=== PATIENT | female | born 1970 | race Caucasian/White ===

== ENCOUNTER 2019-01-15 22:31 | Emergency (ER) | payer BC, OTHER ==
[~2019-01-15] VITALS: Ht 162.6 cm; Wt 98.4 kg
[~2019-01-15 22:31] MED LIST: INSU10SU6 SUBQ; METF850T PO; PIOG15TA2 PO
[2019-01-15 23:05] VITALS: BP 129/81
--- NOTE | 2019-01-15 23:08 | NUR ---
PT AMBULATED TO LOBBY WITH VSS. ACCOMPANIED BY .
--- NOTE | 2019-01-15 23:30 | NUR ---
PT AMBULATED TO ER BED 02
--- NOTE | 2019-01-15 23:31 | NUR ---
PATIENT PRESENTS ER WITH C/O NEAR SYNCOPE 3 TIMES SINCE YESTERDAY. PT STATED SHE HAS SOME PRSSURE IN HER NECK. PT DENIES FEVER AND DIARRHEA. PT HAS HAD SOME N/V. PATIENT STATES PAIN OF 7/10 AT THIS TIME;PT IS A/O X4.PT HAS HX OF DM. VSS; PATIENT POSITIONED FOR COMFORT; HOB ELEVATED; BEDRAILS UP X2; BED DOWN. ER MD MADE AWARE OF PT STATUS.
[2019-01-15] MEDS ORDERED: NACL 0.9% 1,000 ML IV ONE (23:40)
--- NOTE | 2019-01-16 00:01 | NUR ---
PT TAKEN TO CT
[2019-01-16 00:36] LABS: BASOPHILS % (AUTO) 0.3 % (0.0-2.0); EOSINOPHILS % (AUTO) 0.5 % (0.0-4.0); HEMATOCRIT 40.3 % (36-48); HEMOGLOBIN 13.1 g/dL (12.0-16.0); LYMPHOCYTES # (AUTO) 1.7 K/uL (2.5-16.5); LYMPHOCYTES % (AUTO) 20.6 % (20.5-51.1); MEAN CORPUSCULAR HEMOGLOBIN 30 pg (27-31); MEAN CORPUSCULAR HGB CONC 33 g/dL (33-37); MEAN CORPUSCULAR VOLUME 91.8 fL (80-94); MONOCYTES # (AUTO) 0.4 K/uL (0.8-1.0); NEUTROPHILS % (AUTO) 73.6 % (42.2-75.2); PLATELET COUNT (AUTO) 265 K/uL (140-450); RED BLOOD CELL COUNT(AUTO) 4.39 MIL/uL (4.20-5.40); RED CELL DISTRIBUTION WIDTH 12.7 % (11.6-13.7); WHITE BLOOD COUNT (AUTO) 8.1 K/uL (4.8-10.8)
[2019-01-16 00:45] LABS: BARBITURATE, URINE NEG. ng/ml (NEG <=200); BENZODIAZEPINE, URINE NEG. ng/mL (NEG <=200); CANNABINOID, URINE NEG. ng/mL (NEG <=50); COCAINE, URINE NEG. ng/mL (NEG <=300); OPIATE, URINE NEG. ng/mL (NEG <=2000); PHENCYCLIDINE SCREEN,URINE NEG. ng/mL (NEG <=25)
[2019-01-16 01:07] LABS: ALBUMIN 3.4 g/dL (3.4-5.0); ANION GAP 10.3 (8-16); CARBON DIOXIDE 28.6 mmol/L (21-32); CREATININE 0.7 mg/dL (0.6-1.3); POTASSIUM 3.9 mmol/L (3.5-5.1); TOTAL BILIRUBIN 0.4 mg/dL (0.0-1.0)
--- NOTE | 2019-01-16 01:18 | NUR ---
PT SITTING UP IN BED, VSS. COMFORT MEASURES OFFERED PT TOLERATED WELL.
[2019-01-16 02:58] LABS: APPEARANCE,URINE CLEAR (CLEAR); BILIRUBIN,URINE NEGATIVE (NEGATIVE); BLOOD, URINE NEGATIVE (NEGATIVE); COLOR,URINE YELLOW (YELLOW); LEUKOCYTE ESTERASE ,URINE NEGATIVE (NEGATIVE); NITRITE, URINE NEGATIVE (NEGATIVE); PH,URINE 6.5 (5.0-9.0); UGLUCOSE 1+ (NEGATIVE)
--- NOTE | 2019-01-16 03:26 | NUR ---
Patient discharged with v/s stable. Written and verbal after care instructions given and explained. Patient verbalized understanding. Ambulatory with steady gait. All questions addressed prior to discharge. Advised to follow up with PMD.
[2019-01-16 03:27] VITALS: BP 129/81
== END 2019-01-16 03:26 | disposition home or self-care (01) ==
LOC: MED 22:31
DX: R42 Dizziness and giddiness (principal); R55 Syncope and collapse; E11.9 Type 2 diabetes mellitus without complications; Z88.5 Allergy status to narcotic agent; Z88.1 Allergy status to other antibiotic agents; Z91.040 Latex allergy status; Z79.4 Long term (current) use of insulin
CPT/HCPCS: 36415; 70450; 71045; 80053; 80305; 81003; 84484; 85025; 87086; 96360; 99283; J7030; Q0092; 93005

== ENCOUNTER 2019-05-30 15:24 | Emergency (ER) | payer BC ==
[~2019-05-30] VITALS: Ht 165.1 cm; Wt 97.1 kg
[2019-05-30 15:35] VITALS: BP 137/87
--- NOTE | 2019-05-30 15:42 | NUR ---
PT WALKED TO LOBBY TO WAIT FOR BED.
--- NOTE | 2019-05-30 16:48 | NUR ---
DIZZINESS STARTED AT 1410. N/V. VOMITTED ONE TIME WITH STOMACH CONTENT. BS 225 HX: DM TX: BETA-KETOBIOTIN,ACTIVE FIT CONTROL GARCINA,GINSULIN,ASPIRIN,VASOTEC,INSULIN
--- NOTE | 2019-05-30 16:48 | NUR ---
PT AMBULATED TO BED 06.
--- NOTE | 2019-05-30 17:13 | NUR ---
Dr. Morrison evaluating patient at bedside.
[2019-05-30] MEDS ORDERED: NACL 0.9% 1,000 ML IV SCH (17:27)
[2019-05-30] MEDS ORDERED: NACL 0.9% 1,000 ML IV ONE (17:27)
[2019-05-30] MEDS ORDERED: ONDANSETRON 4 MG/2 ML VIAL IVP ONE (17:30)
[2019-05-30] MEDS ORDERED: MECLIZINE 25 MG TAB PO ONE (17:30)
[2019-05-30 18:04] LABS: BASOPHILS % (AUTO) 0.2 % (0.0-2.0); EOSINOPHILS % (AUTO) 0.2 % (0.0-4.0); HEMATOCRIT 42.2 % (36-48); HEMOGLOBIN 13.9 g/dL (12.0-16.0); LYMPHOCYTES # (AUTO) 1.9 K/uL (2.5-16.5); LYMPHOCYTES % (AUTO) 16.5 % (20.5-51.1); MEAN CORPUSCULAR HEMOGLOBIN 30 pg (27-31); MEAN CORPUSCULAR HGB CONC 33 g/dL (33-37); MONOCYTES # (AUTO) 0.4 K/uL (0.8-1.0); MONOCYTES % (AUTO) 3.7 % (1.7-9.3); NEUTROPHILS # (AUTO) 8.9 K/uL (1.8-7.7); NEUTROPHILS % (AUTO) 79.4 % (42.2-75.2); PLATELET COUNT (AUTO) 271 K/uL (140-450); RED BLOOD CELL COUNT(AUTO) 4.59 MIL/uL (4.20-5.40); RED CELL DISTRIBUTION WIDTH 13.3 % (11.6-13.7); WHITE BLOOD COUNT (AUTO) 11.2 K/uL (4.8-10.8)
[2019-05-30 18:10] LABS: PROTHROMBIN TIME 9.1 secs (10.8-13.4)
[2019-05-30 18:12] LABS: APPEARANCE,URINE CLEAR (CLEAR); BILIRUBIN,URINE NEGATIVE (NEGATIVE); BLOOD, URINE NEGATIVE (NEGATIVE); COLOR,URINE YELLOW (YELLOW); LEUKOCYTE ESTERASE ,URINE NEGATIVE (NEGATIVE); NITRITE, URINE NEGATIVE (NEGATIVE); UGLUCOSE 2+ (NEGATIVE)
[2019-05-30 18:13] LABS: ANION GAP 10.4 (8-16); CARBON DIOXIDE 30.3 mmol/L (21-32); CHLORIDE 106 mmol/L (98-107); CREATININE 0.7 mg/dL (0.6-1.3); GFR ARICAN-AMERICAN 114 mL/min (>90); GLUCOSE 123 mg/dL (74-106); POTASSIUM 3.7 mmol/L (3.5-5.1); SODIUM SERUM 143 mmol/L (136-145); UREA NITROGEN, BLOOD 11 mg/dL (7-18)
--- NOTE | 2019-05-30 18:15 | NUR ---
inventory technician at bedside.
[2019-05-30 18:19] LABS: BARBITURATE, URINE NEG. ng/ml (NEG <=200); BENZODIAZEPINE, URINE NEG. ng/mL (NEG <=200); CANNABINOID, URINE NEG. ng/mL (NEG <=50); COCAINE, URINE NEG. ng/mL (NEG <=300); OPIATE, URINE NEG. ng/mL (NEG <=2000); PHENCYCLIDINE SCREEN,URINE NEG. ng/mL (NEG <=25)
[2019-05-30 18:24] LABS: ACETONE, SERUM NEGATIVE (NEGATIVE)
[2019-05-30 18:29] LABS: ALBUMIN 3.8 g/dL (3.4-5.0); ASPARTATE AMINOTRANSFERASE 18 U/L (15-37); MAGNESIUM 1.9 mg/dL (1.8-2.4); TOTAL BILIRUBIN 0.4 mg/dL (0.0-1.0)
--- NOTE | 2019-05-30 18:47 | NUR ---
PT LYING COMFORTABLY IN HER BED.
--- NOTE | 2019-05-30 18:49 | NUR ---
Note sara in EDM - 05/30/19 at 1849 by [facility]SS DIZZINESS STARTED AT 1410. N/V. VOMITTED ONE TIME WITH STOMACH CONTENT. BS 225 HX: DM TX: BETA-KETOBIOTIN,ACTIVE FIT CONTROL GARCINA,GINSULIN,ASPIRIN,VASOTEC,INSULIN
--- NOTE | 2019-05-30 19:23 | NUR ---
REPORT GIVEN TO MARSHA BELL. PT RADHA.
[2019-05-30 19:34] VITALS: BP 142/78
--- NOTE | 2019-05-30 19:34 | NUR ---
Patient discharged with v/s stable. Written and verbal after care instructions given and explained. Patient alert, oriented and verbalized understanding of instructions. Ambulatory with steady gait. All questions addressed prior to discharge. ID band removed. Patient advised to follow up with PMD. Rx of ANTIVERT given. Patient educated on indication of medication including possible reaction and side effects. Opportunity to ask questions provided and answered.
== END 2019-05-30 19:34 | disposition home or self-care (01) ==
LOC: MED 15:24
DX: R55 Syncope and collapse (principal); R42 Dizziness and giddiness; E11.9 Type 2 diabetes mellitus without complications; Z79.4 Long term (current) use of insulin; Z79.899 Other long term (current) drug therapy; Z88.5 Allergy status to narcotic agent; Z88.1 Allergy status to other antibiotic agents; Z91.040 Latex allergy status
CPT/HCPCS: 36415; 70450; 71045; 80053; 80305; 81003; 81025; 82009; 82550; 82948; 83036; 83605; 83735; 84484; 85025; 85610; 93005; 96361; 96374; 99284; G0482; J2405; J7030; J8597; Q0092

== ENCOUNTER 2019-08-25 03:08 | Emergency (ER) | payer BC ==
[~2019-08-25] VITALS: Ht 165.1 cm; Wt 97.5 kg
[2019-08-25 03:23] VITALS: BP 138/80
--- NOTE | 2019-08-25 03:33 | NUR ---
PT TAKEN TO BED 8
--- NOTE | 2019-08-25 03:40 | NUR ---
PATIENT PRESENTS TO ED WITH FLANK PAIN, PAINFUL URINATION X1 DAY. HX OF KIDNEY STONES. . PT STATES SHE HAS EXCESS STRESS AT HOME. DENIES N/V/D; SKIN IS PINK/WARM/DRY; AAOX4 ; PATIENT STATES PAIN OF 10/10 AT THIS TIME; VSS; PATIENT POSITIONED FOR COMFORT; HOB ELEVATED; BEDRAILS UP X2; BED DOWN. ER MD MADE AWARE OF PT STATUS. MEDHX: DM
--- NOTE | 2019-08-25 03:55 | NUR ---
Dr. Hassan examining patient.
[2019-08-25] MEDS ORDERED: ONDANSETRON 4 MG/2 ML VIAL IVP ONE (04:00)
[2019-08-25] MEDS ORDERED: KETOROLAC 30 MG/ML VIAL IVP ONE (04:00)
[2019-08-25] MEDS ORDERED: NACL 0.9% 1,000 ML IV ONE (04:00)
[2019-08-25 04:27] LABS: BASOPHILS % (AUTO) 0.6 % (0.0-2.0); EOSINOPHILS # (AUTO) 0.1 K/uL (0-0.4); EOSINOPHILS % (AUTO) 0.9 % (0.0-4.0); HEMOGLOBIN 13.2 g/dL (12.0-16.0); LYMPHOCYTES # (AUTO) 2.1 K/uL (2.5-16.5); LYMPHOCYTES % (AUTO) 30.2 % (20.5-51.1); MEAN CORPUSCULAR HEMOGLOBIN 31 pg (27-31); MEAN CORPUSCULAR HGB CONC 33 g/dL (33-37); MEAN CORPUSCULAR VOLUME 93.8 fL (80-94); MONOCYTES # (AUTO) 0.4 K/uL (0.8-1.0); MONOCYTES % (AUTO) 5.5 % (1.7-9.3); NEUTROPHILS # (AUTO) 4.4 K/uL (1.8-7.7); NEUTROPHILS % (AUTO) 62.8 % (42.2-75.2); PLATELET COUNT (AUTO) 261 K/uL (140-450); RED BLOOD CELL COUNT(AUTO) 4.27 MIL/uL (4.20-5.40); RED CELL DISTRIBUTION WIDTH 12.7 % (11.6-13.7); WHITE BLOOD COUNT (AUTO) 7.1 K/uL (4.8-10.8)
--- NOTE | 2019-08-25 04:30 | NUR ---
PT RETURN FROM CT
[2019-08-25 04:42] LABS: ANION GAP 8.6 (8-16); CARBON DIOXIDE 29.2 mmol/L (21-32); CREATININE 0.8 mg/dL (0.6-1.3); POTASSIUM 3.8 mmol/L (3.5-5.1)
[2019-08-25 04:48] LABS: ALBUMIN 3.4 g/dL (3.4-5.0); TOTAL BILIRUBIN 0.3 mg/dL (0.0-1.0)
--- NOTE | 2019-08-25 07:07 | NUR ---
Patient discharged with v/s stable. Written and verbal after care instructions given and explained. Patient alert, oriented and verbalized understanding of instructions. Ambulatory with to home. All questions addressed prior to discharge. ID band removed. Patient advised to follow up with PMD. Rx of KEFLEX, NAPROSYN given. Patient educated on indication of medication including possible reaction and side effects. Opportunity to ask questions provided and answered.
[2019-08-25 07:08] VITALS: BP 138/80
== END 2019-08-25 07:07 | disposition home or self-care (01) ==
LOC: MED 03:08
DX: N39.0 Urinary tract infection, site not specified (principal); E11.9 Type 2 diabetes mellitus without complications; Z79.4 Long term (current) use of insulin; Z79.84 Long term (current) use of oral hypoglycemic drugs; Z88.5 Allergy status to narcotic agent; Z88.1 Allergy status to other antibiotic agents; Z91.040 Latex allergy status; Z90.10 Acquired absence of unspecified breast and nipple
CPT/HCPCS: 36415; 74176; 80053; 81002; 81025; 83690; 85025; 96374; 96375; 99284; J1885; J2405; J7030

== ENCOUNTER 2021-05-04 11:59 | Emergency (ER) | payer BC ==
[~2021-05-04] VITALS: Ht 162.6 cm; Wt 79.4 kg
[~2021-05-04 11:59] MED LIST changes: -PIOG15TA2 PO; +PIOG15TA48 PO
[2021-05-04 12:18] VITALS: BP 144/73
--- NOTE | 2021-05-04 14:02 | NUR ---
PT C/O ABD PAIN AND NAUSEA, DENIES ANY VOMITTING, DENIES ANY PROBLEMS WITH URINATION. PT STATED PAIN AND NAUSEA STARTED LAST NIGHT @ 3AM. PAIN CURRENTLY @ 02/27, LAST NIGHT 08/29, RADIATING TO THE BACK. PMH: DM, HTN. RX: METFORMIN, BP MEDICATION, INSULIN
[2021-05-04] MEDS ORDERED: ACETAMINOPHEN 325 MG TAB PO ONE (14:30)
[2021-05-04] MEDS ORDERED: FAMOTIDINE 20 MG TAB PO ONE (14:30)
[2021-05-04 15:04] LABS: BASOPHILS # (AUTO) 0.1 K/uL (0.00-0.22); BASOPHILS % (AUTO) 0.9 % (0.0-2.0); EOSINOPHILS # (AUTO) 0.1 K/uL (0-0.4); EOSINOPHILS % (AUTO) 0.9 % (0.0-4.0); HEMATOCRIT 40.6 % (36-48); HEMOGLOBIN 13.5 g/dL (12.0-16.0); LYMPHOCYTES # (AUTO) 2.6 K/uL (2.5-16.5); LYMPHOCYTES % (AUTO) 33.7 % (20.5-51.1); MEAN CORPUSCULAR HEMOGLOBIN 31 pg (27-31); MEAN CORPUSCULAR HGB CONC 33 g/dL (33-37); MEAN CORPUSCULAR VOLUME 92.8 fL (80-94); MONOCYTES # (AUTO) 0.4 K/uL (0.8-1.0); MONOCYTES % (AUTO) 4.8 % (1.7-9.3); NEUTROPHILS # (AUTO) 4.6 K/uL (1.8-7.7); NEUTROPHILS % (AUTO) 59.7 % (42.2-75.2); PLATELET COUNT (AUTO) 235 K/uL (140-450); RED BLOOD CELL COUNT(AUTO) 4.37 MIL/uL (4.20-5.40); RED CELL DISTRIBUTION WIDTH 12.6 % (11.6-13.7); WHITE BLOOD COUNT (AUTO) 7.8 K/uL (4.8-10.8)
[2021-05-04 15:27] LABS: ALBUMIN 3.4 g/dL (3.4-5.0); ANION GAP 10.7 (8-16); CARBON DIOXIDE 26.3 mmol/L (21-32); CREATININE 0.7 mg/dL (0.6-1.3); TOTAL BILIRUBIN 0.3 mg/dL (0.0-1.0)
[2021-05-04] MEDS ORDERED: FAMO-92 PO (15:52)
[2021-05-04 16:01] VITALS: BP 136/76
== END 2021-05-04 16:01 | disposition home or self-care (01) ==
LOC: MED 11:59
DX: K29.70 Gastritis, unspecified, without bleeding (principal); E11.65 Type 2 diabetes mellitus with hyperglycemia; I10 Essential (primary) hypertension; Z88.5 Allergy status to narcotic agent; Z91.040 Latex allergy status; Z88.1 Allergy status to other antibiotic agents
CPT/HCPCS: 36415; 80053; 81002; 82948; 83690; 85025; 99283

== ENCOUNTER 2021-06-10 11:30 | Emergency (ER) | payer BC ==
[~2021-06-10] VITALS: Ht 170.2 cm; Wt 67.6 kg
[~2021-06-10 11:30] MED LIST changes: +FAMO-92 PO
[2021-06-10 11:35] VITALS: BP 147/72
--- NOTE | 2021-06-10 11:41 | NUR ---
PT AMBULATED TO BED 9
--- NOTE | 2021-06-10 12:05 | NUR ---
51 Y/O FEMALE C/O RED CIRCULAR RASH X1 WEEK NOTED ON LOWER BACK AND CHEST AREA. +CRUSTED, -DISCHARGE. PT STATES THEY ARE VERY ITCHY BUT DENIES PAIN. PT STATED SHE HAD A HOT STONE MASSAGE X1 WEEK AGO AND DEVELOPED RASH AFTERWARDS. PT STATED THAT THE RASH IS SPREADING. DENIES N/V/D, AFEBRILE. PT A/O X4 WITH EVEN AND UNLABORED RESPIRATIONS. PMH: DM ALLERGIES:CODINE, LATEX, VANCO, MORPHINE
--- NOTE | 2021-06-10 13:06 | NUR ---
PA JACQUES AT BEDSIDE EVALUATING PT
[2021-06-10] MEDS ORDERED: KEN.1C TP (13:15)
[2021-06-10] MEDS ORDERED: DIPH25TA53 PO (13:15)
[2021-06-10 13:23] VITALS: BP 147/72
--- NOTE | 2021-06-10 13:23 | NUR ---
Patient discharged with v/s stable. Written and verbal after care instructions given and explained. Patient alert, oriented and verbalized understanding of instructions. Ambulatory with steady gait. All questions addressed prior to discharge. ID band removed. Patient advised to follow up with PMD. Rx of Diphenhydramine and Triamcinolone Acetonide cream given. Patient educated on indication of medication including possible reaction and side effects. Opportunity to ask questions provided and answered.
== END 2021-06-10 13:23 | disposition home or self-care (01) ==
LOC: MED 11:30
DX: R21 Rash and other nonspecific skin eruption (principal); E11.9 Type 2 diabetes mellitus without complications; Z88.5 Allergy status to narcotic agent; Z88.1 Allergy status to other antibiotic agents; Z91.040 Latex allergy status
CPT/HCPCS: 99283

== ENCOUNTER 2021-06-12 01:26 | Emergency (ER) | payer BC ==
[~2021-06-12] VITALS: Ht 162.6 cm; Wt 76.7 kg
[~2021-06-12 01:26] MED LIST changes: +DIPH25TA53 PO; +KEN.1C TP
[2021-06-12 01:30] VITALS: BP 150/80
[2021-06-12] MEDS ORDERED: methylPREDNISolone SS 125 MG/2 ML VIAL IM ONE (02:05)
[2021-06-12] MEDS ORDERED: FAMOTIDINE 20 MG TAB PO ONE (02:05)
[2021-06-12] MEDS ORDERED: PRED20TA6 PO (02:15)
[2021-06-12] MEDS ORDERED: FAMO-90 PO (02:15)
[2021-06-12 02:26] VITALS: BP 150/80
== END 2021-06-12 02:27 | disposition home or self-care (01) ==
LOC: MED 01:26
DX: R21 Rash and other nonspecific skin eruption (principal); E11.9 Type 2 diabetes mellitus without complications; Z88.5 Allergy status to narcotic agent; Z91.040 Latex allergy status; Z88.1 Allergy status to other antibiotic agents
CPT/HCPCS: 96372; 99283; J2930

== ENCOUNTER 2023-05-03 21:42 | Emergency (ER) | payer BC ==
[~2023-05-03] VITALS: Ht 165.1 cm; Wt 79.8 kg
[~2023-05-03 21:42] MED LIST changes: +FAMO-90 PO; +METF-713 PO; -METF850T PO; +PIOG-4 PO; -PIOG15TA48 PO; +PRED20TA6 PO
[2023-05-03 21:44] VITALS: BP 127/84
--- NOTE | 2023-05-03 21:47 | NUR ---
TO LOBBY A/W BED AMBULATORY
--- NOTE | 2023-05-03 22:17 | NUR ---
PT TO BED #2
[2023-05-03 22:25] VITALS: BP 127/84
[2023-05-03] MEDS ORDERED: BENZ150C2 PO (22:43)
[2023-05-03] MEDS ORDERED: DEXT15EL PO (22:43)
--- NOTE | 2023-05-03 22:52 | NUR ---
52 Y/O F from home presents with a dry cough x1week. pt denies any NVD or headaches. pt is ambulatory, A&Ox4, skin intact, respirations even and unlabored. pt stated she is in menopause, denies any ABD pain. pmh- DM allergies- codeine, latex
--- NOTE | 2023-05-03 22:58 | NUR ---
Patient discharged with v/s stable. Written and verbal after care instructions given and explained. Patient alert, oriented and verbalized understanding of instructions. Ambulatory with steady gait. All questions addressed prior to discharge. ID band removed. Patient advised to follow up with PMD. Rx of benzonatate and tussin cough given. Opportunity to ask questions provided and answered.
== END 2023-05-03 22:58 | disposition home or self-care (01) ==
LOC: MED 21:42
DX: J20.8 Acute bronchitis due to other specified organisms (principal); B97.89 Other viral agents as the cause of diseases classified elsewhere; E11.9 Type 2 diabetes mellitus without complications; I10 Essential (primary) hypertension; Z79.899 Other long term (current) drug therapy; Z79.84 Long term (current) use of oral hypoglycemic drugs; Z88.8 Allergy status to other drugs, medicaments and biological substances; Z88.5 Allergy status to narcotic agent; Z91.040 Latex allergy status
CPT/HCPCS: 71045; 99283

== ENCOUNTER 2023-06-23 11:06 | Emergency (ER) | payer BC ==
[~2023-06-23] VITALS: Ht 162.6 cm; Wt 68.0 kg
[~2023-06-23 11:06] MED LIST changes: +BENZ150C2 PO; +DEXT15EL PO
[2023-06-23 11:09] VITALS: BP 156/89; PULSE 76; RESP 16; TEMP 98; O2SAT 98
[2023-06-23 11:52] LABS: BASOPHILS % (AUTO) 0.4 % (0.0-2.0); EOSINOPHILS # (AUTO) 0.1 K/uL (0-0.4); EOSINOPHILS % (AUTO) 1.4 % (0.0-4.0); HEMOGLOBIN 13.4 g/dL (12.0-16.0); LYMPHOCYTES # (AUTO) 1.6 K/uL (2.5-16.5); MEAN CORPUSCULAR HEMOGLOBIN 31 pg (27-31); MEAN CORPUSCULAR HGB CONC 34 g/dL (33-37); MEAN CORPUSCULAR VOLUME 91.2 fL (80-94); MONOCYTES # (AUTO) 0.4 K/uL (0.8-1.0); MONOCYTES % (AUTO) 5.6 % (1.7-9.3); NEUTROPHILS # (AUTO) 4.4 K/uL (1.8-7.7); NEUTROPHILS % (AUTO) 67.6 % (42.2-75.2); PLATELET COUNT (AUTO) 269 K/uL (140-450); RED BLOOD CELL COUNT(AUTO) 4.38 MIL/uL (4.20-5.40); RED CELL DISTRIBUTION WIDTH 13.6 % (11.6-13.7); WHITE BLOOD COUNT (AUTO) 6.6 K/uL (4.8-10.8)
[2023-06-23 12:07] LABS: ALANINE AMINOTRANSFERASE 24 U/L (12-78); ALBUMIN 3.3 g/dL (3.4-5.0); ALKALINE PHOSPHATASE 92 U/L (50-136); ANION GAP 11.8 (8-16); ASPARTATE AMINOTRANSFERASE 16 U/L (15-37); CALCIUM 8.5 mg/dL (8.5-10.1); CARBON DIOXIDE 28.9 mmol/L (21-32); CHLORIDE 102 mmol/L (98-107); CREATININE 0.7 mg/dL (0.6-1.3); GFR ARICAN-AMERICAN 112 mL/min (>90); GFR NON ARICAN-AMERICAN 93 mL/min (>90); GLUCOSE 220 mg/dL (74-106); POTASSIUM 3.7 mmol/L (3.5-5.1); SODIUM SERUM 139 mmol/L (136-145); TOTAL BILIRUBIN 0.7 mg/dL (0.0-1.0); TOTAL PROTEIN, SERUM 6.8 g/dL (6.4-8.2); UREA NITROGEN, BLOOD 10 mg/dL (7-18)
[2023-06-23 12:52] LABS: APPEARANCE,URINE CLEAR (CLEAR); BILIRUBIN,URINE NEGATIVE (NEGATIVE); BLOOD, URINE NEGATIVE (NEGATIVE); COLOR,URINE YELLOW (YELLOW); LEUKOCYTE ESTERASE ,URINE NEGATIVE (NEGATIVE); NITRITE, URINE NEGATIVE (NEGATIVE); PH,URINE 6.5 (5.0-9.0); PROTEIN,URINE NEGATIVE (NEGATIVE); UGLUCOSE NEGATIVE (NEGATIVE); UROBILINOGEN,URINE 0.2 EU/dL (0.2 - 1)
[2023-06-23 13:00] VITALS: BP 143/72; PULSE 63; RESP 20; TEMP 98; O2SAT 100
[2023-06-23] MEDS ORDERED: BACITRACIN OINT 500 UNITS/GM PKT TP ONE (19:22)
== END 2023-06-23 13:04 | disposition home or self-care (01) ==
LOC: MED 11:06
DX: F41.9 Anxiety disorder, unspecified (principal); F43.9 Reaction to severe stress, unspecified; R42 Dizziness and giddiness; E11.9 Type 2 diabetes mellitus without complications; I10 Essential (primary) hypertension; Z88.1 Allergy status to other antibiotic agents; Z88.5 Allergy status to narcotic agent; Z88.8 Allergy status to other drugs, medicaments and biological substances; Z79.4 Long term (current) use of insulin; Z91.040 Latex allergy status; Z79.899 Other long term (current) drug therapy
CPT/HCPCS: 36415; 80053; 81003; 84484; 85025; 93005; 99284

== ENCOUNTER 2023-09-10 18:03 | Emergency (ER) | payer BC ==
[~2023-09-10] VITALS: Ht 165.1 cm; Wt 79.4 kg
[2023-09-10 18:24] VITALS: BP 149/64; PULSE 69; RESP 18; TEMP 98.2; O2SAT 97
[2023-09-10 18:55] LABS: APPEARANCE,URINE CLEAR (CLEAR); BILIRUBIN,URINE NEGATIVE (NEGATIVE); BLOOD, URINE NEGATIVE (NEGATIVE); COLOR,URINE YELLOW (YELLOW); LEUKOCYTE ESTERASE ,URINE NEGATIVE (NEGATIVE); NITRITE, URINE NEGATIVE (NEGATIVE); PH,URINE 6.5 (5.0-9.0); PROTEIN,URINE NEGATIVE (NEGATIVE); UGLUCOSE 3+ (NEGATIVE)
[2023-09-10] MEDS ORDERED: FLUC150T PO (19:15)
[2023-09-10 19:25] VITALS: BP 149/64; PULSE 69; RESP 18; TEMP 98.2; O2SAT 97
== END 2023-09-10 19:26 | disposition home or self-care (01) ==
LOC: MED 18:03
DX: L29.2 Pruritus vulvae (principal); E11.9 Type 2 diabetes mellitus without complications; Z90.710 Acquired absence of both cervix and uterus; I10 Essential (primary) hypertension; Z98.890 Other specified postprocedural states; Z79.899 Other long term (current) drug therapy; Z79.4 Long term (current) use of insulin; Z88.5 Allergy status to narcotic agent; Z91.040 Latex allergy status; Z88.1 Allergy status to other antibiotic agents
CPT/HCPCS: 81003; 99283

== ENCOUNTER 2023-09-20 21:23 | Emergency (ER) | payer BC ==
[~2023-09-20] VITALS: Ht 162.6 cm; Wt 72.6 kg
[~2023-09-20 21:23] MED LIST changes: +FLUC150T PO
[2023-09-20 21:46] VITALS: BP 141/94; PULSE 94; RESP 16; TEMP 96.8; O2SAT 97
[2023-09-20 22:09] LABS: BILIRUBIN,URINE NEGATIVE (NEGATIVE); BLOOD, URINE 1+ (NEGATIVE); COLOR,URINE YELLOW (YELLOW); LEUKOCYTE ESTERASE ,URINE TRACE (NEGATIVE); NITRITE, URINE POSITIVE (NEGATIVE); PROTEIN,URINE 1+ (NEGATIVE); UGLUCOSE 1+ (NEGATIVE); UROBILINOGEN,URINE 0.2 EU/dL (0.2 - 1)
[2023-09-20 22:10] LABS: APPEARANCE,URINE SLIGHTLY CLOUDY (CLEAR)
[2023-09-20 23:26] LABS: BACTERIA,URINE >30 (MANY) /HPF (None Seen); MUCUS,URINE 1+ /LPF (None Seen); SQUAMOUS EPITHELIAL CELL,UR 4-10 (MOD) /LPF (0-3 (FEW)); WBC,URINE >25 (MANY) /HPF (0-5)
[2023-09-21] MEDS ORDERED: ACETAMINOPHEN 325 MG TAB PO ONE (01:45)
[2023-09-21] MEDS ORDERED: cephALEXin 500 MG CAP PO ONE (01:50)
[2023-09-21] MEDS ORDERED: METR0.752 TP (01:51)
[2023-09-21] MEDS ORDERED: CEPH-588 PO (01:51)
[2023-09-21] MEDS ORDERED: WITC1MED TP (01:51)
[2023-09-21 02:15] VITALS: BP 141/94; PULSE 94; RESP 16; TEMP 96.8; O2SAT 97
== END 2023-09-21 02:15 | disposition home or self-care (01) ==
LOC: MED 21:23
DX: N39.0 Urinary tract infection, site not specified (principal); N76.0 Acute vaginitis; B96.89 Other specified bacterial agents as the cause of diseases classified elsewhere; E11.9 Type 2 diabetes mellitus without complications; I10 Essential (primary) hypertension; Z79.899 Other long term (current) drug therapy; Z79.2 Long term (current) use of antibiotics; Z79.4 Long term (current) use of insulin; Z88.5 Allergy status to narcotic agent; Z91.040 Latex allergy status; Z88.1 Allergy status to other antibiotic agents
CPT/HCPCS: 81001; 87086; 87210; 87491; 99284

== ENCOUNTER 2023-10-06 23:41 | Emergency (ER) | payer BC ==
[~2023-10-06] VITALS: Ht 165.1 cm; Wt 77.1 kg
[2023-10-06 23:41] VITALS: BP 151/77; PULSE 77; RESP 17; TEMP 98; O2SAT 96
[~2023-10-06 23:41] MED LIST changes: +CEPH-588 PO; +METR0.752 TP; +WITC1MED TP
[2023-10-07] MEDS ORDERED: KETOROLAC 30 MG/ML VIAL IM ONE (04:10)
[2023-10-07] MEDS ORDERED: ACETAMINOPHEN EXTRA STRENGTH 500 MG TAB PO ONE (04:10)
== END 2023-10-07 03:35 | disposition home or self-care (01) ==
LOC: MED 23:41
DX: S16.1XXA Strain of muscle, fascia and tendon at neck level, initial encounter (principal); R51.9 Headache, unspecified; I10 Essential (primary) hypertension; E11.9 Type 2 diabetes mellitus without complications; Z79.4 Long term (current) use of insulin; Z88.5 Allergy status to narcotic agent; Z88.8 Allergy status to other drugs, medicaments and biological substances; Z79.899 Other long term (current) drug therapy; V49.88XA Car occupant (driver) (passenger) injured in other specified transport accidents, initial encounter; Y93.89 Activity, other specified; Y92.89 Other specified places as the place of occurrence of the external cause; Y99.8 Other external cause status
CPT/HCPCS: 96372; 99283; J1885

== ENCOUNTER 2024-07-04 19:18 | Emergency (ER) | payer BC, MEDICAID ==
[~2024-07-04] VITALS: Ht 162.6 cm; Wt 81.6 kg
[~2024-07-04 19:18] MED LIST changes: -BENZ150C2 PO; +BENZ150C7 PO
[2024-07-04 19:44] VITALS: BP 154/79; PULSE 74; RESP 16; TEMP 98.2; O2SAT 98
[2024-07-04 21:10] VITALS: BP 155/78; PULSE 70; RESP 15; O2SAT 99
[2024-07-04] MEDS ORDERED: ACET-5629 PO (21:32)
== END 2024-07-04 21:41 | disposition home or self-care (01) ==
LOC: MED 19:18
DX: I83.91 Asymptomatic varicose veins of right lower extremity (principal); E11.9 Type 2 diabetes mellitus without complications; I10 Essential (primary) hypertension; Z79.84 Long term (current) use of oral hypoglycemic drugs; Z79.899 Other long term (current) drug therapy; Z88.1 Allergy status to other antibiotic agents; Z91.040 Latex allergy status; Z88.5 Allergy status to narcotic agent
CPT/HCPCS: 93971; 99284